=== PATIENT | female | born 1950 | race Caucasian/White ===

== ENCOUNTER → 2018-03-16 10:28 | Outpatient (CLI) | payer MEDICARE, SELFPAY ==
[2018-03-16 11:47] LABS: Ferritin 11.3 ng/mL (11.1-264)
[2018-03-16 11:55] LABS: Erythrocyte Sedimentation Rate 22 MM/HR (0-20)
== END ==
PROVIDERS: PCP Student in an Organized Health Care Education/Training Program; Visit Provider Physician Assistant Medical
DX: Z79.899 Other long term (current) drug therapy (principal)
CPT/HCPCS: 36415; 82728; 85651

== ENCOUNTER → 2019-09-20 13:12 | Outpatient (CLI) | payer MEDICARE, SELFPAY ==
--- NOTE | 2019-09-20 | DI.RAD.S_ITS ---
PROCEDURE: XR CHEST 2V INDICATIONS: COUGH TECHNIQUE: 2 views of the chest were acquired. COMPARISON: None. FINDINGS: Surgical changes and devices: None. Lungs and pleura: Mild patchy opacities projecting in the right upper lobe and right lung base. No pleural effusions or pneumothorax. Airway thickening in keeping with nonspecific bronchitis and/or reactive airways disease. Mediastinum: Mediastinal contours are normal. Heart size is normal. Hiatal hernia. Bones and chest wall: No suspicious bony abnormalities. Soft tissues appear unremarkable. IMPRESSION: Mild patchy opacities projecting in the right upper lobe and right lung base suggestive of multifocal low-grade bronchopneumonia and/or aspiration. Of note, in the absence of prior studies, these findings are technically age-indeterminate. Airway thickening in keeping with nonspecific bronchitis and/or reactive airways disease. Hiatal hernia. Dictated by: Alex Valverde M.D. on 09/20/2019 at 13:54 Approved by: Alex Valverde M.D. on 09/20/2019 at 13:55
== END ==
PROVIDERS: PCP Student in an Organized Health Care Education/Training Program; Referring Provider Student in an Organized Health Care Education/Training Program; Visit Provider Student in an Organized Health Care Education/Training Program
DX: R05 Cough (principal); K44.9 Diaphragmatic hernia without obstruction or gangrene
CPT/HCPCS: 71046

== ENCOUNTER → 2019-10-02 11:30 | Outpatient (CLI) | payer MEDICARE, SELFPAY ==
--- NOTE | 2019-10-02 | DI.RAD.S_ITS ---
PROCEDURE: XR CHEST 2V INDICATIONS: Bronchopneumonia, unspecified organism TECHNIQUE: 2 views of the chest were acquired. COMPARISON: [facility], CR, XR CHEST 2V, 09/20/2019, 13:18. FINDINGS: Surgical changes and devices: None. Lungs and pleura: The previously seen areas of mild airspace disease within the right lung are less conspicuous on the current study. No new areas of pulmonary consolidation are identified. There is no effusion or pneumothorax. Mediastinum: Mediastinal contours are normal. Heart size is normal. There is a prominent hiatal hernia. Bones and chest wall: No suspicious bony abnormalities. Soft tissues appear unremarkable. IMPRESSION: Resolving areas of mild right-sided pulmonary consolidation. No new consolidation. Dictated by: Saji Hussein M.D. on 10/02/2019 at 10:44 Approved by: Saji Hussein M.D. on 10/02/2019 at 11:00
== END ==
PROVIDERS: PCP Student in an Organized Health Care Education/Training Program; Referring Provider Student in an Organized Health Care Education/Training Program; Visit Provider Student in an Organized Health Care Education/Training Program
DX: J18.0 Bronchopneumonia, unspecified organism (principal)
CPT/HCPCS: 71046

== ENCOUNTER → 2021-02-17 07:53 | Outpatient (CLI) | payer MEDICARE, SELFPAY ==
--- NOTE | 2021-02-17 08:04 | DI.ECHO.S_ITS ---
:Reason For Study: Cardiomyopathy, Dilated : :Ordering Physician: : :RASHAD CALDWELL Performed By: Avery Stephens : :Referring: RASHAD CALDWELL : + + Interpretation Summary The study quality was technically difficult. The ejection fraction is estimated to be 50-55%. Diastolic parameters suggest a relaxation abnormality of the left ventricle, consistent with probable normal filling pressures. The right ventricle is mildly dilated. The right ventricular systolic function is normal. The left atrium is mildly dilated. No significant valvular abnormalities. Unable to estimate PASP. Procedure: A two-dimensional transthoracic echocardiogram with color flow and Doppler was performed. The study quality was technically difficult. There is no prior echocardiogram noted for this patient. Left Ventricle: The left ventricle is normal in size and wall thickness. Left ventricular systolic function is low normal. The ejection fraction is estimated to be 50-55%. Diastolic parameters suggest a relaxation abnormality of the left ventricle, consistent with probable normal filling pressures. Right Ventricle: The right ventricle is mildly dilated. The right ventricular systolic function is normal. Atria: The left atrium is mildly dilated. The right atrium is normal in size. There is no Doppler evidence for an interatrial shunt. Mitral Valve: The mitral valve leaflets appear mildly thickened, but open well. There is trace mitral regurgitation. Aortic Valve: There is mild aortic valve sclerosis. There is trace aortic regurgitation. Tricuspid Valve: The tricuspid valve is normal in structure and function. No tricuspid regurgitation. Pulmonary artery pressures cannot be estimated because of the lack of a measurable TR jet velocity. Pulmonic Valve: The pulmonic valve is normal in structure and function. There is a trace or physiologic amount of pulmonic regurgitation. Great Vessels: The aortic root is normal size. The ascending aorta is mildly enlarged. The inferior vena cava was not visualized. Pericardium/ Pleura There is no pericardial effusion. MMode/2D Measurements & Calculations LVIDd: 5.2 cm LVOT diam: 2.9 cm LVIDs: 3.5 cm Ao root diam: 4.1 cm FS: 32.7 % asc Aorta Diam: 3.7 cm IVSd: 1.1 cm Ao Arch Diam (Prox Trans): 3.6 cm LVPWd: 0.70 cm LV duggan. diameter/BSA (cm/m^2): 2.0 LV sys. diameter/BSA (cm/m^2): 1.4 LA dimension: 4.1 cm RA long axis: 5.0 cm LA A2 area: 23.2 cm2 RA area: 18.5 cm2 LA A4 area: 24.5 cm2 RA vol: 58.5 ml LA length (vol): 5.4 cm RA : 23.0 ml/m2 LA vol: 89.7 ml LA vol index: 35.2 ml/m2 RVD1 (basal): 4.4 cm LVLs ap4: 7.5 cm LVLd ap2: 9.1 cm TAPSE_phl: 2.4 cm LVLs ap2: 7.8 cm Doppler Measurements & Calculations Ao V2 max: 90.4 cm/sec LVOT Max Nestor: 80.3 cm/sec Ao V2 mean: 66.6 cm/sec LV V1 max P.6 mmHg Ao max P.0 mmHg LV V1 VTI: 19.1 cm Ao mean P.0 mmHg LUIS(I,D): 6.1 cm2 Ao V2 VTI: 20.6 cm LUIS(V,D): 5.9 cm2 sev ratio: 0.93 LUIS indexed to BSA (cm^2/m^2): 2.4 MV E max nestor: 71.1 cm/sec PA V2 max: 116.0 cm/sec MV A max nestor: 89.5 cm/sec PA V2 mean: 70.6 cm/sec MV E/A: 0.79 PA mean P.0 mmHg Med Peak E' Nestor: 5.2 cm/sec PA pr(Accel): 32.6 mmHg E/E' med: 13.6 Lat Peak E' Nestor: 6.3 cm/sec E/E' lat: 11.3 E/e' average: 12.5 MV dec time: 0.25 sec SV(LVOT): 126.2 ml AV VR_phl: 0.89 LUIS(VTI)/BSA_phl: 2.4 MV P1/2t-pr_phl: 74.0 msec Reading Physician:[id number] PM
== END ==
PROVIDERS: PCP Student in an Organized Health Care Education/Training Program; Referring Provider Student in an Organized Health Care Education/Training Program; Visit Provider Student in an Organized Health Care Education/Training Program
DX: I35.8 Other nonrheumatic aortic valve disorders (principal); I77.89 Other specified disorders of arteries and arterioles; I42.0 Dilated cardiomyopathy; M79.89 Other specified soft tissue disorders
CPT/HCPCS: 93306